=== PATIENT | male | born 1950 | race Caucasian/White ===

== ENCOUNTER 2019-01-26 23:32 | Emergency (ER) | payer OTHER ==
--- NOTE | 2019-01-27 00:58 | XRAY Report ---
Reason: pain/swelling R HAND 4th digit Procedure Date: 01/26/2019 Accession Number: [id number] / [id number] Procedure: XR - Hand 3 View RT CPT Code: FULL RESULT: EXAM: RIGHT HAND RADIOGRAPHY EXAM DATE: 01/26/2019 11:59 PM. CLINICAL HISTORY: Pain/swelling R HAND 4th digit. COMPARISON: None. TECHNIQUE: 3 views. FINDINGS: Bones/joints: Oblique fracture of the proximal through mid aspect of the fifth metacarpal with lateral/ventral displacement of the distal fracture fragment as much as 5 mm and mild to moderate foreshortening. No definite intra-articular involvement. There is dorsal dislocation of the fourth digit PIP joint. No definite associated fracture Soft Tissues: Associated/regional soft tissue swelling. IMPRESSION: 1. Displaced oblique fracture of the fifth metacarpal. 2. Dorsal dislocation of the fourth digit PIP joint. RADIA
[2019-01-27] MEDS ORDERED: HYDROcod/ACETAM 5/325 MG TABLET PO STA (01:50)
[2019-01-27] MEDS ORDERED: LIDOCAINE 1% 2 ML VIAL SUBQ STA (01:50)
[2019-01-27] MEDS ORDERED: BUPIVACAINE 0.25% PF 30 ML VIAL SUBQ STA (01:50)
--- NOTE | 2019-01-27 02:25 | ED Physician Documentation ---
PD HPI UPPER EXT INJURY - Stated complaint Stated Complaint: R RING FINGER INJURY - Chief complaint Chief Complaint: Ext Problem - History obtained from History obtained from: Patient - History of Present Illness Location: Right, Hand Type of injury: Other Where injury occurred: Home Timing - onset: How many minutes ago (45) Timing - duration: Minutes Timing - details: Abrupt onset Pain level now: 6 Improved by: Rest Worsened by: Moving, Palpating Associated symptoms: Swelling Similar symptoms before: Has not had sx before Recently seen: Not recently seen - Additonal information Additional information: tried to catch heavy tool (vise) with right hand, causing injury to right hand. c/o pain, swelling. he is right-hand dominant Review of Systems Skin: reports: Reviewed and negative Musculoskeletal: reports: Extremity pain, Extremity swelling Neurologic: denies: Focal weakness, Numbness PD PAST MEDICAL HISTORY - Past Medical History Past Medical History: Yes Cardiovascular: Hypertension Respiratory: Asthma Neuro: None Endocrine/Autoimmune: None GI: None : Benign prostate hypertrophy HEENT: None Psych: None Musculoskeletal: None Derm: None - Past Surgical History Past Surgical History: Yes General: Cholecystectomy - Present Medications Home Medications: Ambulatory Orders Medication Instructions Recorded Confirmed Hydrocodone/Acetaminophen 1 - 2 each PO Q6HR PRN #20 tablet 01/27/19 [Hydrocodone-Acetamin 5-325 mg] - Allergies Allergies/Adverse Reactions: Allergies Allergy/AdvReac Type Severity Reaction Status Date / Time No Known Drug Allergies Allergy Verified 01/27/19 02:02 - Social History Does the pt smoke?: No Smoking Status: Never smoker Does the pt drink ETOH?: Yes Does the pt have substance abuse?: No - Immunizations Immunizations are current?: Yes - POLST Patient has POLST: No PD ED PE NORMAL - Vitals Vital signs reviewed: Yes - General General: Alert and oriented X 3, No acute distress, Well developed/nourished - Derm Derm: Normal color - Neuro Neuro: No motor deficit, No sensory deficit PD ED PE EXPANDED - Extremities Extremities: Deformity (right hand 4th PIP joint), Tenderness, Limited ROM, Swelling DARNELL UE/Hands Visual: 1 - swelling, tenderness Results - Vitals Vitals: Oxygen O2 Source Room air - Rads (name of study) right hand xrays Radiology: Prelim report reviewed, See rad report Procedures - Splint (location) Upper extremity right Splint applied by: Tech Type of splint: Fiberglass, Ulnar gutter Other: Patient tolerated well, No complications, Neurovascular intact, Good alignment, Sling provided - Reduction Body part reduced: Right, Finger Fracture or dislocation: Dislocation Anesthesia: Digital block Reduction aftercare: NV intact, Alignment improved, Splint applied, Sling, Patient tolerated well PD MEDICAL DECISION MAKING - ED course Complexity details: reviewed results, re-evaluated patient, considered differential, d/w patient Departure - Departure Disposition: Home, Self Care Clinical Impression: Fracture of fifth metacarpal bone of right hand Qualifiers: Encounter type: initial encounter Fracture type: closed Metacarpal location: shaft Fracture alignment: displaced Qualified Code(s): S62.326A - Displaced fracture of shaft of fifth metacarpal bone, right hand, initial encounter for closed fracture Dislocation of proximal interphalangeal joint of right ring finger Qualifiers: Encounter type: initial encounter Qualified Code(s): S63.284A - Dislocation of proximal interphalangeal joint of right ring finger, initial encounter Condition: Good Instructions: ED Dislocation Finger Redu, ED Fx Hand Closed, ED Sling, ED Splint Care Fiberglass Follow-Up: Saul Wilkins MD [Provider Admit Priv/Credential] - (Call Tuesday to arrange for next available appointment) Prescriptions: Hydrocodone/Acetaminophen [Hydrocodone-Acetamin 5-325 mg] 1 - 2 each PO Q6HR PRN #20 tablet PRN Reason: Pain Discharge Date/Time: 01/27/19 05:15
[2019-01-27 04:28] VITALS: BP 143/91
== END 2019-01-27 05:15 | disposition home or self-care (01) ==
LOC: ED 23:32
DX: S62.326A Displaced fracture of shaft of fifth metacarpal bone, right hand, initial encounter for closed fracture (principal); S63.284A Dislocation of proximal interphalangeal joint of right ring finger, initial encounter; X50.1XXA Overexertion from prolonged static or awkward postures, initial encounter; I10 Essential (primary) hypertension
CPT/HCPCS: 26770; 29125; 73130; 99283; A9270

== ENCOUNTER 2021-05-21 11:47 | Outpatient (CLI) | payer OTHER, MEDICARE ==
[2021-05-21 15:16] LABS: ALBUMIN 4.6 g/dL (3.2-5.5); ALBUMIN/GLOBULIN RATIO 1.5 (1.0-2.2); BILIRUBIN,TOTAL 1.2 mg/dL (0.2-1.0); CALCIUM 9.4 mg/dL (8.5-10.3); CREATININE 0.9 mg/dL (0.6-1.2); POTASSIUM 3.9 mmol/L (3.5-5.0); TOTAL PROTEIN 7.7 g/dL (6.7-8.2)
[2021-05-21 20:15] LABS: ESTIMATED AVERAGE GLUCOSE 128 mg/dL (70-100); HEMOGLOBIN A1c% 6.1 % (4.27-6.07)
== END 2021-05-21 11:48 | disposition home or self-care (01) ==
LOC: LAB.S 11:47
PROVIDERS: ATTEND Family Medicine
DX: I10 Essential (primary) hypertension (principal); R73.03 Prediabetes
CPT/HCPCS: 36415; 80053; 83036

== ENCOUNTER 2022-10-26 17:28 | Emergency (ER) | payer MEDICARE, OTHER ==
--- NOTE | 2022-10-26 18:00 | ED Physician Documentation ---
History of Present Illness - Stated complaint Stated Complaint: COUGH/CONGESTION - Chief complaint Chief Complaint: Resp - History obtained from History obtained from: Patient - Additonal information Additional information: 72-year-old gentleman with history of asthma has been sick for 2 days with productive cough with rivas to white sputum, foamy, sore throat and low-grade fever. He is immunized against COVID and flu. He is not short of breath. Review of Systems Constitutional: reports: Fever Nose: denies: Rhinorrhea / runny nose, Congestion Throat: reports: Sore throat Respiratory: reports: Cough. denies: Dyspnea PD PAST MEDICAL HISTORY - Past Medical History Cardiovascular: Hypertension Respiratory: Asthma Neuro: None Endocrine/Autoimmune: None GI: None : Benign prostate hypertrophy HEENT: None Psych: None Musculoskeletal: None Derm: None - Past Surgical History Past Surgical History: Yes General: Cholecystectomy - Present Medications Home Medications: Ambulatory Orders Medication Instructions Recorded Confirmed Hydrocodone/Acetaminophen 1 - 2 each PO Q6HR PRN #20 tablet 01/27/19 [Hydrocodone-Acetamin 5-325 mg] Benzonatate [Tessalon] 200 mg PO TID PRN #20 cap 10/26/22 Doxycycline [Vibramycin] 100 mg PO BID #14 tablet 10/26/22 Nirmatrelvir/Ritonavir [Paxlovid 1 each PO BID #20 tablet 10/26/22 2X150 mg-100 mg (Eua)] predniSONE [Deltasone] 20 mg PO [id number] #21 tab 10/26/22 - Allergies Allergies/Adverse Reactions: Allergies Allergy/AdvReac Type Severity Reaction Status Date / Time amlodipine Allergy Unknown Verified 10/26/22 17:51 codeine Allergy Rash Verified 10/26/22 17:52 - Social History Does the pt smoke?: No Smoking Status: Never smoker Does the pt drink ETOH?: Yes Does the pt have substance abuse?: No - Immunizations Immunizations are current?: Yes - POLST Patient has POLST: No PD ED PE NORMAL - Vitals Vital signs reviewed: Yes - General General: Alert and oriented X 3, No acute distress - HEENT HEENT: Pharynx benign - Cardiac Cardiac: RRR, No murmur - Respiratory Respiratory: No respiratory distress, Other (Mild expiratory wheezes with good air movement) - Abdomen Abdomen: Non tender - Derm Derm: No rash - Neuro Neuro: Alert and oriented X 3, Normal speech Results - Vitals Vitals: Vital Signs - 24 hr 10/26/22 10/26/22 10/26/22 17:46 18:17 18:42 Temperature 37.0 C 36.5 C Heart Rate 99 84 100 Respiratory 18 20 20 Rate Blood Pressure 153/77 H 156/85 H O2 Saturation 96 97 Oxygen O2 Source Room air - Labs Labs: Laboratory Tests 10/26/22 18:00 Nasal Adenovirus (PCR) NOT DETECTED Nasal B. parapertussis DNA (PCR) NOT DETECTED Nasal Coronavir 229E PCR NOT DETECTED Nasal Coronavir HKU1 PCR NOT DETECTED Nasal Coronavir NL63 PCR NOT DETECTED Nasal Coronavir OC43 PCR NOT DETECTED Nasal Enterovir/Rhinovir PCR NOT DETECTED Nasal Influenza B PCR NOT DETECTED Nasal Influenza A PCR NOT DETECTED Nasal Parainfluen 1 PCR NOT DETECTED Nasal Parainfluen 2 PCR NOT DETECTED Nasal Parainfluen 3 PCR NOT DETECTED Nasal Parainfluen 4 PCR NOT DETECTED Nasal RSV (PCR) NOT DETECTED Nasal B.pertussis DNA PCR NOT DETECTED Nasal C.pneumoniae (PCR) NOT DETECTED Eran Human Metapneumo PCR NOT DETECTED Nasal M.pneumoniae (PCR) NOT DETECTED Nasal SARS-CoV-2 (PCR) DETECTED A - Rads (name of study) 1v cxr Radiology: Final report received (Low lung volumes, NAD), EMP read indepedently PD Medical Decision Making - ED course ED course: Subsequent to discharge his COVID test did come back positive. I called and discussed this with him by phone. He is on day 3-4 of symptoms and given his comorbidities it is reasonable to start antivirals. We reviewed his home med list and he is not on anything that has severe interactions with the antivirals and a prescription for paxlovid was sent to [facility] as well. Departure - Departure Disposition: Home, Self Care Clinical Impression: Bronchitis Condition: Good Record reviewed to determine appropriate education?: Yes Instructions: ED Upper Resp Infec Abx Tx Prescriptions: predniSONE [Deltasone] 20 mg PO [id number] #21 tab Nirmatrelvir/Ritonavir [Paxlovid 2X150 mg-100 mg (Eua)] 1 each PO BID #20 tablet Benzonatate [Tessalon] 200 mg PO TID PRN #20 cap PRN Reason: Cough Doxycycline [Vibramycin] 100 mg PO BID #14 tablet Comments: Chest x-ray is unremarkable, no pneumonia. I am treating you for bronchitis with antibiotics, steroids, and cough medicine. I sent the prescriptions electronically to [facility] in [place]. Call your doctor to arrange a follow-up appointment, make the next available appointment. In the interim, return anytime if worse or if new symptoms develop. You do have a COVID test pending, we will call you with the positive results. It should be back later this evening. Discharge Date/Time: 10/26/22 18:42
[2022-10-26] MEDS: IPRATROPIUM/ALBUTEROL 3 ML NEB INH STA (18:09)
--- NOTE | 2022-10-26 18:22 | XRAY Report ---
PROCEDURE: Chest 1 View X-Ray INDICATIONS: cough TECHNIQUE: One view of the chest was acquired. COMPARISON: None. FINDINGS: Surgical changes and devices: None. Lungs and pleura: Low lung volumes. No dense consolidation or pleural effusion. Mediastinum: Mediastinal contours appear normal. Heart size is normal. Bones and chest wall: No suspicious bony lesions. Overlying soft tissues appear unremarkable. IMPRESSION: No acute radiographic abnormality. Lung volumes are low. Reviewed by: Bhavik Juarez MD on 10/26/2022 5:21 PM [facility] Approved by: Bhavik Juarez MD on 10/26/2022 5:21 PM [facility] Station ID: [id number]
[2022-10-26] MEDS: predniSONE 20 MG TABLET PO STA (18:35)
[2022-10-26] MEDS: BENZONATATE 100 MG CAPSULE PO STA (18:35)
[2022-10-26] MEDS: DOXYCYCLINE 100 MG TABLET PO STA (18:35)
[2022-10-26 18:44] VITALS: BP 156/85
[2022-10-26 19:02] LABS: CORONAVIRUS 229E-RESP PCR NOT DETECTED; CORONAVIRUS HKU1-RESP PCR NOT DETECTED; CORONAVIRUS NL63-RESP PCR NOT DETECTED; CORONAVIRUS OC43-RESP PCR NOT DETECTED
[2022-10-26 19:06] LABS: B. PARAPERTUSSIS- RESP PCR PAN NOT DETECTED; B. PERTUSSIS- RESP PCR PANEL NOT DETECTED; C. PNEUMONIAE- RESP PCR PANEL NOT DETECTED; HUMAN METAPNEUMOVIRUS NOT DETECTED; INFLUENZA A- RESP PCR PANEL NOT DETECTED; INFLUENZA B - RESP PCR PANEL NOT DETECTED; M. PNEUMONIAE- RESP PCR PANEL NOT DETECTED; PARAINFLUENZA VIRUS 1 NOT DETECTED; PARAINFLUENZA VIRUS 2 NOT DETECTED; PARAINFLUENZA VIRUS 3 NOT DETECTED; PARAINFLUENZA VIRUS 4 NOT DETECTED; RHINOVIRUS/ENTEROVIRUS NOT DETECTED; RSV- RESP PCR PANEL NOT DETECTED; SARS-CoV-2 -RESP PCR PANEL DETECTED
== END 2022-10-26 18:42 | disposition home or self-care (01) ==
LOC: ED 17:28
DX: U07.1 COVID-19 (principal); J40 Bronchitis, not specified as acute or chronic
CPT/HCPCS: 71045; 87633; 94640; 94664; 99283; 99284; A9270; J7512